=== PATIENT | female | born 1950 | race Caucasian/White ===

== ENCOUNTER → 2017-05-01 | Outpatient (CLI) | payer BC ==
[~2017-05-01] MED LIST: ACCURETIC 20-11 EACH PO; ALEVE220 M1 PO; AMRIX15 MG PO; COUMADIN 2 MG TA2 M1 PO; CRANBERRY PLUS1 EACH PO; CRANBERRY500 M1 PO; DEXILANT60 MG PO; FISH OIL 1,0001 EAC5 PO; FOLIC ACID1 MG PO; HYDROCODON-ACE1 EAC5 PO; HYDROXYCHLOROQ200 M1 PO; KRILL OIL 3001 EACH PO; LOSARTAN-HCTZ1 EACH PO; METHOTREXATE 22.5 MG PO; MULTIVITAMINS PO; NEXIUM40 MG PO; OMEPRAZOLE40 MG PO; ORENCIA IV; PROBIOTIC1 EAC1 PO; SYNTHROID75 MCG PO; VICODIN 5-5001 EACH PO; VISTARIL 25 MG25 M1 PO
--- NOTE | ~2017-05-01 | 2DMMODE ---
[facility] [employer] [place] [address] 2 D/M-MODE ECHOCARDIOGRAM Name: KAVON ELLIS Room #: REG Vidal#: [id number] Admission: 05/01/17 Attend Phys: Pavel Benz, Discharge: Date of : 54 Date of Service: 05/01/17 1420 Report #: [id number] THIS REPORT FOR: //name// APPROVED REPORT Study performed: 05/01/2017 12:32:56 EXAM: Comprehensive 2D, Doppler, and color-flow Echocardiogram Patient Location: Out-Patient Other Information Study Quality: Adequate Indications Murmur. Hx: HTN 2D Dimensions RVDd: 39.89 mm LVEF(%): 70.26 (>50%) IVSd: 11.05 (7-11mm) LVOT Diam: 23.11 (18-24mm) LVDd: 43.79 mm PWd: 10.26 (7-11mm) Ascending Ao: 38.71 (22-36mm) LVDs: 26.50 (25-40mm) Aortic Root: 39.82 mm Lozoya's LVEF: 70.26 % Volumes Left Atrial Volume (Systole) Single Plane 4CH: 58.98 mL Single Plane 2CH: 57.64 mL LA ESV Index: 28.00 mL/m2 Aortic Valve AoV Peak Gasper.: 1.53 m/s AO Peak Gr.: 9.36 mmHg LVOT Max P.68 mmHg LVOT Max V: 1.39 m/s AMANDA Vmax: 3.80 cm2 Mitral Valve E/A Ratio: 0.9 MV Decel. Time: 260.36 ms MV E Max Gasper.: 0.83 m/s MV A Gasper.: 0.95 m/s MV PHT: 75.50 ms IVRT: 73.82 ms [facility] [place] [address] 2 D/M-MODE ECHOCARDIOGRAM Name: CALEBKAVON RAYA Room #: REG KHADIJAH Drake#: [id number] Admission: 05/01/17 Attend Phys: Pavel Benz, Discharge: Date of : 54 Date of Service: 05/01/17 1420 Report #: [id number] Pulmonary Valve PV Peak Gasper.: 1.22 m/s PV Peak Gr.: 5.97 mmHg Pulmonary Vein P Vein S: 0.63 m/s P Vein A: 0.34 m/s P Vein D: 0.56 m/s P Vein A Dur.: 115.3 msec P Vein S/D Ratio: 1.13 Tricuspid Valve TR Peak Gasper.: 2.57 m/s RAP Estimate: 5.00 mmHg TR Peak Gr.: 26.41 mmHg PA Pressure: 31.00 mmHg Left Ventricle The left ventricle is normal size. There is normal LV segmental wall motion. There is normal left ventricular wall thickness. Left ventricular systolic function is normal. LVEF is 55-60%. Mild diastolic dysfunction is present. Right Ventricle The right ventricle is normal size. The right ventricular systolic function is normal. Atria Left atrium appears mildly dilated. The right atrium size is normal. Aortic Valve The aortic valve is normal in structure. No aortic regurgitation is present. There is no aortic valvular stenosis. Mitral Valve The mitral valve is normal in structure. No mitral regurgitation. No evidence of mitral valve stenosis. Tricuspid Valve The tricuspid valve is normal in structure. There is mild tricuspid regurgitation. The right atrial pressure is estimated at 5 mmHg. There is mild pulmonary hypertension with an estimated PAP of 30mmHg. Pulmonic Valve The pulmonary valve is normal in structure. Mild pulmonic regurgitation. [employer] [facility] [address] [place] [address] 2 D/M-MODE ECHOCARDIOGRAM Name: CALEBKRYSTLE Room #: REG KHADIJAH Drake#: [id number] Admission: 05/01/17 Attend Phys: Pavel Benz, Discharge: Date of : 54 Date of Service: 05/01/17 1420 Report #: [id number] Aortic root is mildly dilated. The ascending aorta is mildly dilated (3.9cm). IVC is normal in size and collapses >50% with inspiration. Pericardium There is no pericardial effusion. <Conclusion> Left ventricular systolic function is normal. There is normal LV segmental wall motion. LVEF is 55-60%. Mild diastolic dysfunction is present. The aortic valve is normal in structure. No aortic insufficiency or stenosis. The mitral valve is normal in structure. No mitral regurgitation. There is mild pulmonary hypertension with an estimated PAP of 30mmHg. There is no pericardial effusion. <ELECTRONICALLY SIGNED> By: Miguel Angel Sen MD, FACC 05/01/17 1420 1420 1420 Miguel Angel Sen MD, FACC /INF
== END ==
LOC: CV 08:15
DX: R01.1 Cardiac murmur, unspecified (principal); I10 Essential (primary) hypertension

== ENCOUNTER → 2020-11-21 | Outpatient (CLI) | payer BC, OTHER | LOC: ULTRA 12:57 | PROVIDERS: ATTEND Orthopaedic Surgery Foot and Ankle Surgery | DX: S92.342A Displaced fracture of fourth metatarsal bone, left foot, initial encounter for closed fracture (principal); X58.XXXA Exposure to other specified factors, initial encounter; Y93.89 Activity, other specified; Y92.89 Other specified places as the place of occurrence of the external cause; Y99.8 Other external cause status ==